=== PATIENT | male | born 1960 | race Caucasian/White ===

== ENCOUNTER → 2019-08-31 10:04 | Outpatient (CLI) | payer BC, SELFPAY ==
[2019-08-31 13:12] LABS: ALB/GLOB Ratio 1.5 RATIO (0.9-2.4); AST(SGOT) 22 U/L (15-37); Alanine Aminotransfer ALT/SGPT 42 U/L (16-61); Albumin, Serum 4.1 g/dL (3.2-5.0); Alkaline Phosphatase 68 U/L (45-117); Anion Gap 7 (5-15); BUN 16 mg/dL (7-18); BUN/Creat Ratio 15.1 RATIO (10-20); Calcium,Total 9.3 mg/dL (8.5-10.1); Chloride 103 mmol/L (98-107); Creatinine, Serum 1.06 mg/dL (0.70-1.30); EST Glomerular Filtration Rate 76 mL/min (>60); Est Glom Filt Rate - Afr Amer 92 mL/min (>60); Globulin 2.8 g/dL (2.2-4.2); Glucose 98 mg/dL (74-106); PSA,Total - Annual Screen 0.66 ng/mL (0.00-4.00); Protein, Total 6.9 g/dL (6.4-8.2); Sodium Level 139 mmol/L (136-145)
== END ==
PROVIDERS: Family Provider Family Medicine; PCP Family Medicine; Referring Provider Family Medicine; Visit Provider Family Medicine
DX: Z12.5 Encounter for screening for malignant neoplasm of prostate (principal); E78.5 Hyperlipidemia, unspecified
CPT/HCPCS: 36415; 80053; 84153; G0103

== ENCOUNTER → 2020-09-09 08:06 | Outpatient (CLI) | payer BC, SELFPAY ==
[2020-09-09 10:01] LABS: ALB/GLOB Ratio 1.2 RATIO (0.9-2.4); AST(SGOT) 21 U/L (15-37); Alanine Aminotransfer ALT/SGPT 47 U/L (16-61); Albumin, Serum 3.9 g/dL (3.2-5.0); Alkaline Phosphatase 66 U/L (45-117); Anion Gap 8 (5-15); BUN 12 mg/dL (7-18); BUN/Creat Ratio 11.2 RATIO (10-20); Chloride 100 mmol/L (98-107); Cholesterol 168 mg/dL (200); Creatinine, Serum 1.07 mg/dL (0.70-1.30); EST Glomerular Filtration Rate 75 mL/min (>60); Est Glom Filt Rate - Afr Amer 90 mL/min (>60); Globulin 3.3 g/dL (2.2-4.2); Glucose 104 mg/dL (74-106); High Density Lipoprotein 72 mg/dL; PSA,Total - Annual Screen 0.77 ng/mL (0.00-4.00); Potassium 3.9 mmol/L (3.5-5.1); Protein, Total 7.2 g/dL (6.4-8.2); Sodium Level 138 mmol/L (136-145); Triglycerides 49 mg/dL; Very Low Density Lipoprotein 10 mg/dL (5-40)
== END ==
PROVIDERS: PCP Family Medicine; Visit Provider Family Medicine
DX: I10 Essential (primary) hypertension (principal); Z12.5 Encounter for screening for malignant neoplasm of prostate
CPT/HCPCS: 36415; 80053; 80061; 84153; G0103

== ENCOUNTER → 2021-09-23 11:45 | Outpatient (CLI) | payer BC, SELFPAY ==
[2021-09-23 16:04] LABS: ALB/GLOB Ratio 1.1 RATIO (0.9-2.4); AST(SGOT) 21 U/L (15-37); Alanine Aminotransfer ALT/SGPT 43 U/L (16-61); Albumin, Serum 3.5 g/dL (3.2-5.0); Alkaline Phosphatase 75 U/L (45-117); Anion Gap 7 (5-15); BUN 16 mg/dL (7-18); Chloride 106 mmol/L (98-107); Cholesterol 224 mg/dL (200); Creatinine, Serum 1.07 mg/dL (0.70-1.30); EST Glomerular Filtration Rate 74 mL/min (>60); Est Glom Filt Rate - Afr Amer 90 mL/min (>60); Globulin 3.3 g/dL (2.2-4.2); Glucose 105 mg/dL (74-106); High Density Lipoprotein 53 mg/dL; Protein, Total 6.8 g/dL (6.4-8.2); Sodium Level 140 mmol/L (136-145); Triglycerides 144 mg/dL; Very Low Density Lipoprotein 29 mg/dL (5-40)
== END ==
PROVIDERS: PCP Family Medicine; Referring Provider Family Medicine; Visit Provider Family Medicine
DX: Z12.5 Encounter for screening for malignant neoplasm of prostate (principal); I10 Essential (primary) hypertension
CPT/HCPCS: 36415; 80053; 80061; 84153; G0103

== ENCOUNTER 2022-01-26 06:03 | Day surgery (SDC) | payer BC, SELFPAY ==
[2022-01-26 06:31] VITALS: BP 149/82; PULSE 86; RESP 16; TEMP 36.6; O2SAT 99; BMI 33.3
[2022-01-26] MEDS: Lactated Ringers 1,000 ML 15 ML IV (06:52)
--- NOTE | 2022-01-26 07:15 | HP.PCM_ITS ---
HPI - General HPI Narrative LLUVIA RICHARDSON, is a 61 M who presents for screening colonoscopy. Patient last colonoscopy 3 to 4 years ago negative per patient. Patient's father was diagnosed with colon cancer in his 70s. Patient also states he did Cologuard which was negative a few years ago. Patient states he has bowel movements daily denies any blood. Patient denies any chronic abdominal pain/nausea/vomiting. Patient states for the last 2 months he has had reflux daily. He has been taking Tums for this. [facility] Medical History (Updated 01/26/22 @ 07:[address] Marilyn Cortes MD) Alcohol use Arthritis Heartburn History of echocardiogram History of edema History of stress test Hypertension Non-smoker Shortness of breath on exertion Wears glasses Home Medications atorvastatin 20 mg PO QHS 12/26/21 [History Last Taken Unknown] doxycycline monohydrate 50 mg PO DAILY 12/26/21 [History Last Taken Unknown] electrolytes, oral 1 packet PO DAILY 12/26/21 [History Last Taken Unknown] indomethacin 50 mg PO PRN PRN 12/26/21 [History Last Taken Unknown] lisinopril-hydrochlorothiazide 1 tab PO DAILY 12/26/21 [History Last Taken 01/26/22] Allergy/AdvReac Type Severity Reaction Status Date / Time No Known Allergies Allergy Verified 01/26/22 06:30 Surgical History (Updated 12/26/21 @ 08:48 by Radha Hernandez) History of laparoscopic cholecystectomy History of meniscectomy of right knee Hx of colonoscopy Hx of total knee arthroplasty Social History (System 03/08/20 @ 12:08 by Phoenix Farr) Smoking Status: Never smoker Past Medical/Surgical History Planned Operation Planned Operative Procedure/s: CSCOPE/OA Previous Hospitalizations/Surgeries HX Hospitalizations: No Any Problems With Anesthesia: No You/Your Family Experience Fever (Hyperthermia) With Anes: No Cholinesterase deficiency: No Cardiovascular Hx Hypertension: Yes (CONTROLLED WITH MED) Respiratory Hx Sleep Apnea: No Hx Respiratory Tract Infection/Cold (presently): No Do You Snore Loudly (louder than talking or can be heard): No Do You Often Feel Tired/ Fatigued/ Sleepy Dring Daytime?: No Has Anyone Observed You Stop Breathing During Sleep?: No Result (for STOP score): Negative Smoking Status: Never smoker Neurological Does patient have nerve stimulator: No Reproduction : No Miscellaneous Recent Exposure to Contagious Disease: No Allergies No Known Allergies Allergy (Verified 01/26/22 06:30) Discharge Is Pt Admitted From a Detention, or a [facility]: No After D/C, Where Do you Plan to Go: Return Home Vital Signs Vital Signs Vital Signs: 01/26/22 06:31 01/26/22 06:34 Temperature 98 F Temperature Source Temporal Pulse Rate 86 Respiratory Rate 16 Respiratory Pattern Normal Blood Pressure 149/82 H Blood Pressure Mean 104 Blood Pressure Source Monitor Blood Pressure Position Semi-Fowlers Blood Pressure Location Right Arm Pulse Ox 99 Oxygen Delivery Method Room Air Weight Weight: 259 lb 4.218 oz Body Mass Index (BMI) 33.3 Physical Exam Const alert, oriented x3 and no apparent distress HEENT normocephalic and head/scalp atraumatic Resp normal respiratory effort Cardio regular rate GI soft to palpation and non-tender; Negative for non-distended Palpation: Negative for guarding Extremity no clubbing, cyanosis or edema Neuro CN's II-XII intact bilaterally Psych mental status grossly normal Assessment & Plan Assessment/Plan (1) Encounter for screening for malignant neoplasm of colon: (2) GERD (gastroesophageal reflux disease): PLAN: Discussed with patient would recommend taking [id number] omeprazole 40 mg p.o. daily for about 2 weeks to see if this helps or if his reflux goes away. Also recommend patient taking some Pepcid initially as it can take couple days for the omeprazole to work. Discussed with patient if he does not have resolution of symptoms in 6 to 8 weeks on the omeprazole. Would recommend an EGD at that time. Procedure Criteria Type of Procedure Procedure Type: Elective Elective Risks - COVID COVID Risk Discussion: The surgeon/proceduralist and patient have discussed in detail the risk of exposure to and/or potential harm posed by the COVID-19 virus with having a surgery/procedure at this time versus the risk of delaying the surgery/procedure. It is not possible to know either the risk of delaying the surgery or procedure or chance of getting an infection with perfect accuracy, but a joint decision was made between the patient and the surgeon/proceduralist to proceed at this time with the scheduled surgery/procedure as indicated on the consent form. Surgery Risks - Colonoscopy Risks Include but are not Limited To: Risks include but are not limited to: Bleeding, perforation requiring further surgery, inability to complete colonoscopy requiring barium enema.
[2022-01-26 07:54] VITALS: BP 117/78; BP 149/82; PULSE 72; RESP 16; TEMP 35.9; O2SAT 98
[2022-01-26 08:00] VITALS: BP 119/79; BP 149/82; PULSE 70; RESP 16; O2SAT 99
--- NOTE | 2022-01-26 08:01 | OP.COLON_ITS ---
Patient Name: Rajinder Friend Procedure Date: 01/26/2022 6:58 AM Date of : 1960 Age: 61 Procedure: Colonoscopy Indications: Screening for colorectal malignant neoplasm Providers: Marilyn Cortes MD Medicines: Monitored Anesthesia Care Patient Profile: This is a 61 year old male. Last Colonoscopy: more than 3 years ago. Complications: No immediate complications. Procedure: Pre-Anesthesia Assessment: - Prior to the procedure, a History and Physical was performed, and patient medications and allergies were reviewed. The patient's tolerance of previous anesthesia was also reviewed. The risks and benefits of the procedure and the sedation options and risks were discussed with the patient. All questions were answered, and informed consent was obtained. Prior Anticoagulants: The patient has taken no previous anticoagulant or antiplatelet agents. ASA Grade Assessment: Per anesthesia. After reviewing the risks and benefits, the patient was deemed in satisfactory condition to undergo the procedure. After I obtained informed consent, the scope was passed under direct vision. Throughout the procedure, the patient's blood pressure, pulse, and oxygen saturations were monitored continuously. The Colonoscope was introduced through the anus and advanced to the cecum, identified by the appendiceal orifice, ileocecal valve and palpation. The colonoscopy was performed without difficulty. The patient tolerated the procedure well. The quality of the bowel preparation was good. Scope In: 7:32:42 AM Scope Withdrawal Time 0 hours 14 minutes 35 seconds Scope Out: 7:50:39 AM Total Procedure Duration Time 0 hours 17 minutes 57 seconds Findings: Hemorrhoids were found on perianal exam. Non-bleeding external and internal hemorrhoids were found. The hemorrhoids were Grade I (internal hemorrhoids that do not prolapse). Multiple small-mouthed diverticula were found in the sigmoid colon. The exam was otherwise without abnormality. Impression: - Hemorrhoids found on perianal exam. - Non-bleeding external and internal hemorrhoids. - Diverticulosis in the sigmoid colon. - The examination was otherwise normal. - No specimens collected. Recommendation: - Discharge patient to home. - High fiber diet. - Continue present medications. - Repeat colonoscopy in 10 years for screening purposes. Procedure Code(s): --- Professional --- G0121, PT, Colorectal cancer screening; colonoscopy on individual not meeting criteria for high risk Diagnosis Code(s): --- Professional --- Z12.11, Encounter for screening for malignant neoplasm of colon K64.0, First degree hemorrhoids K57.30, Diverticulosis of large intestine without perforation or abscess without bleeding CPT copyright 2017 [employer]. All rights reserved. The codes documented in this report are preliminary and upon certified respiratory therapist review may be revised to meet current compliance requirements. MD Marilyn Luong MD 01/26/2022 8:00:36 AM This report has been signed electronically. Number of Addenda: 0 Note Initiated On: 01/26/2022 6:58 AM
--- NOTE | 2022-01-26 08:02 | OP.CCLET_ITS ---
01/26/2022 Joseph Jimenez [address] [place] [address] Re : Colonoscopy procedure for Rajinder Friend Dear Dr. Jimenez This procedure was performed on Wednesday, January 26, 2022. My impressions and recommendations are as follows: Impressions : - Hemorrhoids found on perianal exam. - Non-bleeding external and internal hemorrhoids. - Diverticulosis in the sigmoid colon. - The examination was otherwise normal. - No specimens collected. Recommendations : - Discharge patient to home. - High fiber diet. - Continue present medications. - Repeat colonoscopy in 10 years for screening purposes. My findings are described in the full procedure note, which is enclosed. If I can be of further assistance, please feel free to contact me at Doctor phone number(s): , Work: . Sincerely, MD Marilyn Luong MD 01/26/2022 8:00:36 AM This report has been signed electronically.
[2022-01-26 08:05] VITALS: BP 120/77; BP 149/82; PULSE 67; RESP 16; O2SAT 99
[2022-01-26 08:08] VITALS: BP 122/76; BP 149/82; PULSE 68; RESP 16; TEMP 36.6; O2SAT 98
[2022-01-26 08:21] VITALS: BP 149/82
== END 2022-01-26 23:59 | disposition home or self-care (01) ==
LOC: EN 06:05 → AC 06:07
PROVIDERS: PCP Family Medicine; Referring Provider Family Medicine; Visit Provider Surgery
PROC: 0DJD8ZZ Inspection of Lower Intestinal Tract, Via Natural or Artificial Opening Endoscopic (ICD-10-PCS; CPT 45378; principal; 2022-01-26 07:25)
DX: Z12.11 Encounter for screening for malignant neoplasm of colon (principal); K64.0 First degree hemorrhoids; K64.4 Residual hemorrhoidal skin tags; K57.30 Diverticulosis of large intestine without perforation or abscess without bleeding; K21.9 Gastro-esophageal reflux disease without esophagitis; I10 Essential (primary) hypertension; M19.90 Unspecified osteoarthritis, unspecified site; Z79.899 Other long term (current) drug therapy; Z20.822 Contact with and (suspected) exposure to COVID-19; Z80.0 Family history of malignant neoplasm of digestive organs
CPT/HCPCS: 45378; 87426; J7120

== ENCOUNTER → 2022-09-16 | Outpatient (CLI) | payer BC, SELFPAY ==
[2022-09-16 15:16] LABS: ALB/GLOB Ratio 1.2 RATIO (0.9-2.4); AST(SGOT) 26 U/L (15-37); Alanine Aminotransfer ALT/SGPT 47 U/L (16-61); Alkaline Phosphatase 68 U/L (45-117); Anion Gap 6 (5-15); BUN 18 mg/dL (7-18); BUN/Creat Ratio 17.5 RATIO (10-20); Calcium,Total 9.4 mg/dL (8.5-10.1); Chloride 103 mmol/L (98-107); Cholesterol 164 mg/dL (200); Creatinine, Serum 1.03 mg/dL (0.70-1.30); EST Glomerular Filtration Rate 78 mL/min (>60); Est Glom Filt Rate - Afr Amer 94 mL/min (>60); Globulin 3.2 g/dL (2.2-4.2); Glucose 111 mg/dL (74-106); High Density Lipoprotein 58 mg/dL; PSA,Total - Annual Screen 0.74 ng/mL (0.00-4.00); Potassium 3.5 mmol/L (3.5-5.1); Protein, Total 7.2 g/dL (6.4-8.2); Sodium Level 137 mmol/L (136-145); Triglycerides 107 mg/dL; Very Low Density Lipoprotein 21 mg/dL (5-40)
== END | disposition home or self-care (01) ==
LOC: MFPLAB 12:23
PROVIDERS: PCP Family Medicine; Referring Provider Family Medicine; Visit Provider Family Medicine
DX: Z12.5 Encounter for screening for malignant neoplasm of prostate (principal); I10 Essential (primary) hypertension; E78.5 Hyperlipidemia, unspecified
CPT/HCPCS: 36415; 80053; 80061; 84153; G0103

== ENCOUNTER → 2022-10-09 | Outpatient (CLI) | payer BC, SELFPAY ==
--- NOTE | 2022-10-09 07:35 | CT_ITS ---
STUDY: CTA CHEST REASON FOR EXAM: Male, 62 years old. THORACIC ASCENDING AORTIC ANEURYSM RADIATION DOSAGE (If Supplied By Facility): CTDIvol = ( 15.16 ) mGy, DLP = ( 955.25 ) mGycm TECHNIQUE: The examination was performed with the intravenous administration of IV 100mL Isovue-370. Post-processing of the angiographic images was performed, with multiplanar reformation and 3D reconstruction. Individualized dose optimization techniques were used for this CT. COMPARISON: None. FINDINGS: Normal enhancement of the main pulmonary artery and right and left pulmonary arteries. Normal enhancement of the bilateral peripheral pulmonary arteries. There is no demonstrated pulmonary embolism. Normal thoracic aorta and visualized great vessels. There is no demonstrated aortic dissection. Normal heart and pericardium. There are calcifications of the coronary arteries. Normal mediastinum. Normal hilar regions. Normal visualized trachea and bronchi. The lungs are well expanded. Normal pulmonary parenchyma. Normal pleura. Normal chest wall structures. Normal osseous structures. Normal visualized upper abdomen. CT/CTA Chest W/WO Contrast IMPRESSION: Normal CTA chest examination, without a demonstrated pulmonary embolism or arterial dissection. Electronically Signed: Jeovanny Strong MD at 9:50 EST ,
== END | disposition home or self-care (01) ==
LOC: CT 07:33
PROVIDERS: PCP Family Medicine; Visit Provider Family Medicine
DX: I71.21 Aneurysm of the ascending aorta, without rupture (principal)
CPT/HCPCS: 71275; Q9967

== ENCOUNTER → 2022-10-26 | Outpatient (CLI) | payer BC, SELFPAY ==
--- NOTE | 2022-10-26 15:49 | STRESSREP ---
Stress Test Report Exercise myocardial perfusion stress test. [62-year-old man with a history of dyspnea] Stress protocol: Resting EKG demonstrates [normal sinus rhythm with a rate of 70] bpm resting blood pressure is 132/78 mmHg. The patient exercised according to the regular Jaswant protocol for a total duration of 6 minutes attaining a maximum heart rate of 151 bpm which was 96% of max impacted heart rate the maximum workload was 7 metabolic equivalents. At rest there were no ST or T wave changes noted suggest ischemia and at peak exercise upsloping ST changes only were noted we did not meet the criteria for ischemia. No clinical angina was noted the test was terminated due to the target heart rate being achieved. The peak blood pressure was 172/80 mmHg. Rate-pressure product was 24,200. Myocardial perfusion protocol. 14.8 mCi of technetium 99m sestamibi was injected at rest. The patient exercised according to regular Jaswant protocol for total duration of 6 minutes and at peak exercise 44.8 mCi of technetium 99m sestamibi was injected stress images were obtained stress and rest images were reconstructed in comparing the short axis vertical long and horizontal long axis. Gated images were also obtained. Perfusion SPECT analysis: Review of the stress images demonstrate normal uptake of tracer noted in all areas of the myocardium. The resting images similarly demonstrate normal uptake of tracer noted in all areas of the myocardium. No areas of reversibility are noted to suggest ischemia no previous infarct was noted. Gated SPECT analysis: The gated ejection fraction is 64. Conclusion: Normal exercise myocardial perfusion stress test at a moderate workload. Preserved ejection fraction.
== END | disposition home or self-care (01) ==
LOC: CVS 06:44
PROVIDERS: PCP Family Medicine; Referring Provider Family Medicine; Visit Provider Family Medicine
DX: R06.00 Dyspnea, unspecified (principal); I71.21 Aneurysm of the ascending aorta, without rupture
CPT/HCPCS: 78452; 93017; A9500; A4216

== ENCOUNTER → 2023-09-21 | Outpatient (CLI) | payer BC, SELFPAY ==
[2023-09-21 12:28] LABS: ALB/GLOB Ratio 1.3 RATIO (0.9-2.4); AST(SGOT) 20 U/L (15-37); Alanine Aminotransfer ALT/SGPT 46 U/L (16-61); Alkaline Phosphatase 68 U/L (45-117); Anion Gap 5 (5-15); BUN 13 mg/dL (7-18); BUN/Creat Ratio 13.7 RATIO (10-20); Calcium,Total 9.2 mg/dL (8.5-10.1); Chloride 103 mmol/L (98-107); Creatinine, Serum 0.95 mg/dL (0.70-1.30); EST Glomerular Filtration Rate 85 mL/min (>60); Est Glom Filt Rate - Afr Amer 103 mL/min (>60); Globulin 3.1 g/dL (2.2-4.2); Glucose 112 mg/dL (74-106); PSA,Total - Annual Screen 0.86 ng/mL (0.00-4.00); Potassium 3.6 mmol/L (3.5-5.1); Protein, Total 7.1 g/dL (6.4-8.2); Sodium Level 135 mmol/L (136-145); Uric Acid 7.8 mg/dL (3.5-7.2)
== END | disposition home or self-care (01) ==
LOC: MFPLAB 10:17
PROVIDERS: PCP Family Medicine; Visit Provider Family Medicine
DX: Z00.00 Encounter for general adult medical examination without abnormal findings (principal); Z12.5 Encounter for screening for malignant neoplasm of prostate; M10.9 Gout, unspecified; E78.5 Hyperlipidemia, unspecified
CPT/HCPCS: 36415; 80053; 84153; 84550; G0103

== ENCOUNTER → 2023-11-11 | Outpatient (CLI) | payer BC, SELFPAY ==
[2023-11-11 11:05] LABS: Uric Acid 8.6 mg/dL (3.5-7.2)
== END | disposition home or self-care (01) ==
PROVIDERS: PCP Family Medicine; Referring Provider Family Medicine; Visit Provider Family Medicine
DX: M10.9 Gout, unspecified (principal)
CPT/HCPCS: 36415; 84550

== ENCOUNTER → 2024-01-14 | Outpatient (CLI) | payer BC, SELFPAY ==
--- OUTSIDE RECORDS SUMMARY | 2024-01-14 12:56 | XMS RPT_ITS | CCD ---
Author Name Unknown Address [address] [place] [address] Organization [facility] Care Team Providers Care Events Intern Name Role Phone Marco Hay Unavailable Nimisha Abdullahi Unavailable Amanda HILL, Anayadira Hankins Primary Care Provide r ANA PAYNE Primary Care Unavail able RODRICK GONZALEZ Attending Unavailable ANA PAYNE Primary Care Unavail able RODRICK GONZALEZ Referring Unavailable Medications Current Medications Medication Drug Class(es) Dates Sig (Normalized) Sig (Original) predniSONE 20 mg oral tablet (3 sources) Start: 05-08-2023 take 1 tablet by mouth every eight hours predniSONE 20 MG 1 tablet Orally Three times a day for 5 days Apr, Active Completed/Discontinued Medications Medication Drug Class(es) Dates Sig (Normalized) Sig (Original) atorvastatin 20 mg oral tablet (4 sources) HMG-CoA Reductase Inhibitor take 1 tablet by mouth once daily atorvastatin (LIPITOR) 20 mg tablet Take 20 mg by mouth once daily. 0 Active Problems Active Problems Problem Classification Problem Date Documented Date Episodic/Chronic Allergic reactions (1 source) Allergic contact dermatitis, unspecified cause Episodic Disorders of lipid metabolism (2 sources) Hyperlipidemia; Translations: [Hyperlipidemia, unspecified] Chronic Essential hypertension (3 sources) Benign essential hypertension; Translations: [Essential (primary) hypertension] Chronic Inflammation; infection of eye (except that caused by tuberculosis or sexually transmitteddisease) (1 source) Unspecified acute conjunctivitis, left eye Episodic Joint disorders and dislocations; trauma-related (2 sources) Loose body in right knee joint; Translations: [Loose body in knee, right knee] Onset: 11-01-2018 11-01-2018 Chronic Osteoarthritis (1 source) Osteoarthritis of left knee joint; Translations: [Unilateral primary osteoarthritis, left knee] 10-21-2023 Chronic Other non-traumatic joint disorders (1 source) Pain in left knee; Translations: [Pain in joint, lower leg] 10-21-2023 Episodic Other nutritional; endocrine; and metabolic disorders (2 sources) Body mass index 30+ - obesity; Translations: [Obesity, unspecified] Chronic Other skin disorders (1 source) Rash and other nonspecific skin eruption Episodic Residual codes; unclassified (2 sources) Family history of malignant neoplasm of gastrointestinal tract; Translations: [Family history of malignant neoplasm of digestive organs] Episodic Residual codes; unclassified (1 source) Pain; Translations: [Pain, unspecified] 10-21-2023 Episodic Residual codes; unclassified (1 source) Pain, unspecified; Translations: [Pain] Onset: 10-21-2023 Episodic Viral infection (2 sources) Herpes labialis; Translations: [Herpes labialis] Episodic Past or Other Problems Problem Classification Problem Date Documented Date Episodic/Chronic Joint disorders and dislocations; trauma-related (4 sources) Acute tear of meniscus of right knee; Translations: [Unspecified tear of unspecified meniscus, current injury, right knee, initial encounter] Onset: 05-27-2018 11-09-2018 Episodic Other acquired deformities (2 sources) Arthropathy of knee joint; Translations: [Other specified acquired deformities of musculoskeletal system] Onset: 10-28-2018 10-28-2018 Episodic Other connective tissue disease (2 sources) Rupture of popliteal space synovial cyst; Translations: [Rupture of popliteal cyst] Onset: 10-28-2018 10-28-2018 Episodic Residual codes; unclassified (2 sources) History of arthroscopy of knee joint; Translations: [Other specified postprocedural states] Onset: 06-13-2018 06-13-2018 Episodic Results Test Name Value Interpretation Reference Range Facil ity Vital Signs Date Time Vital Sign Value Performing Clinician Facility 10-21-2023 10:01-0500 Body height 188 cm Rodrick Gonazlez MD Work Phone: [facility] 10-21-2023 10:01-0500 Body weight 115.67 kg Rodrick Gonzalez MD Work Phone: [facility] 05-08-2023 09:10-0400 Body height 182.88 cm Nimisha Abdullahi Other [employer] Other 05-08-2023 09:10-0400 Body mass index (BMI) [Ratio] 35.26 kg/m2 Nimisha Abdullahi Other [employer] Other 05-08-2023 09:10-0400 Body temperature 97.9 [degF] Nimisha Abdullahi Other [employer] Other 05-08-2023 09:10-0400 Body weight 117.94 kg Nimisha Abdullahi Other [employer] Other 05-08-2023 09:10-0400 Diastolic blood pressure 68 mm[Hg] Nimisha Abdullahi Other [employer] Other 05-08-2023 09:10-0400 SaO2% (BldA) [Mass fraction] 97 % Nimisha Abdullahi Other [employer] Other 05-08-2023 09:10-0400 Systolic blood pressure 110 mm[Hg] Nimisha Abdullahi Other [employer] Other 08-19-2022 14:10-0400 Body height 182.88 cm Marco Hay Other [employer] Other 08-19-2022 14:10-0400 Body mass index (BMI) [Ratio] 7.46 kg/m2 Marco Hay Other [employer] Other 08-19-2022 14:10-0400 Body temperature 97.4 [degF] Marco Hay Other [employer] Other 08-19-2022 14:10-0400 Body weight 24.95 kg Marco Hay Other [employer] Other 08-19-2022 14:10-0400 Respiratory rate 18 /min Marco Hay Other [employer] Other 08-19-2022 14:10-0400 SaO2% (BldA) [Mass fraction] 97 % Marco Hay Other [employer] Other Encounters Encounter Date Encounter Type Care Provider Facility Start: 10-21-2023 End: 10-21-2023 ambulatory ANA PAYNE Facility:[facility] Start: 10-21-2023 End: 10-21-2023 Patient encounter procedure Rodrick Gonzalez MD Work Phone: Orthopaedics Procedures Date Procedure Procedure Detail Performing Clinician Start: 10-21-2023 Radiologic exam knee complete 4/more views Rodrick Gonzalez MD Work Phone: Screening for malign ant neoplasm of colon Marco Hay Other Plan of Treatment Date Care Activity Detail Author Start: 07-23-2023 Influenza vaccination Influenza Vacc ine (#1) [facility] Start: 11-22-2022 Depression Assessment Depression Ass essment [facility] Start: 2019 RSV Vaccine (1 - 1-d ose 60+ series) RSV Vaccine (1 - 1-dose 60+ series) [facility] Start: 2014 Prostate Cancer Scre ening Discussion Prostate Cancer Screening Discussion [facility] Start: 2004 Cologuard (FIT-DNA) Cologuard (FIT-D NA) [facility] Start: 2004 Colonoscopy Colonoscopy [facility] Start: 2004 Colorectal Cancer Screening Colorectal Cancer Screening [facility] Start: [address] [facility] Start: 2004 Diabetes Screening Diabetes Screenin g [facility] Start: 2004 Fecal Occult Blood Fecal Occult Bloo d [facility] Start: 2004 [facility] Start: 1994 Lipid 1996 panel - S william or Plasma Lipid Screening [facility] Start: 1978 Urine microalbumin profile DTa P,Tdap,Td Vaccine (1 - Tdap) [facility] Start: 1977 Hepatitis C Screening Hepatitis C Sc alberto [facility] Start: 1977 HIV Screening HIV Screening [facility] Start: 02-07-1960 Covid-19 Vaccine (#1) Covid-19 Vacci ne (#1) [facility] Immunizations Immunization Date Immunization Notes Care Provider Mason roach NEGATED: Highlighted row has not occurred!10-24-2014 influenza, injectable, quadrivalent, preservative free Patient Objection Marco Hay Other [employer] Other Payers Date Payer Category Payer [facility] Blue [facility] [id number] 2017 Unknown [employer]UE C[employer] PPO OOS [id number] 2017-Present [phone] [address] [place] [address] PPO [id number] Social History Date Type Detail Facility Unknown if ever smoked [employer] Other Start: 11-07-2018 End: 10-21-2023 Sex Assigned At [facility] Start: 05-31-2018 Tobacco smoking stat us IAIS Never smoked tobacco [facility] Start: 05-31-2018 Tobacco use and exposure Smokeless tobacco non-user [facility] Start: 11-07-2018 Alcohol intake Current drinke r of alcohol (finding) [facility] Start: 11-07-2018 End: 10-21-2023 History of Social function [facility] Adult Depression Screening Assessment 0 [facility] Start: 11-07-2018 Alcohol Comment 6-8 beers on t he weekend- No hx of DTs or rehab [facility] Start: 1960 Sex Assigned At Not on file C [facility] Clinical Notes 08-19-2022 to 10-21-2023 Rodrick Gonzalez MD - 10/21/2023 10:02 AM Viridiana Yanes, RT(R) - 10/21/2023 9:45 AM EST Note Date & Type Note Facility 10-21-2023 Note HNO ID: [id number] Author: Rodrick Gonzalez MD Service: ? Author Type: Physician Type: Progress Notes Filed: 10/21/2023 1:57 PM Note Text: CONSULT ORTHOPAEDIC: KNEE PRIMARY CARE PHYSICIAN: Ana Payne MD REFERRING PROVIDER: No referring provider defined for this encounter. ASSESSMENT AND PLAN Impression: Left Knee Severe Degenerative Osteoarthritis, Primary Prior R TKA done by Dr. Valentine in [place] 01/21/2019 Scheduled for left robotic TKA @ 02/22/24 Patient has been pre-oped today and given the pre-op wipes and information Diagnoses: (M17.12) Primary osteoarthritis of left knee (primary encounter diagnosis) Based upon the evaluation today and after discussions with Rajinder Edwards, Rajinder Sean Brinky has significant, worsening pain at the knee. This pain is increased with activity and weight bearing, and interferes with activities of daily living. These symptoms have continued despite a number of non-surgical measures, including a trial of oral pain medication and attempted physical therapy/ structured exercise program and/or use of an assistive device/ bracing (for at least 12 weeks unless the patient was unable to tolerate these measures as discussed above). At this point, the patient will not benefit from further PT due to the severity of their condition. The patient's physical examination is consistent with limitations in range of motion, pain with passive range of motion, crepitus, and effusion/ synovitis. These examination findings are corroborated by imaging findings of joint space narrowing, periarticular osteophyte formation, and subchondral sclerosis. The patient has been treated by the practice and all reasonable treatments have failed to control the disease, which causes significant pain and limits activities of daily living. The patient has failed conservative treatment and joint replacement surgery was discussed and agreed upon by both provider and patient. We will proceed with surgical management to improve function and relieve pain refractory to non-surgical measures. Left Primary Total Knee Arthroplasty as evidenced by six months of unsuccessful non-operative treatment as outlined in the HPI below. Surgery Details Date and Location: At [facility] on 02/22/24. Implants: Esbon Robotic: Yes Predicted LOS: 1 day (Outpatient candidate) Informed consent obtained in the office today. The risks and benefits of surgery were discussed at length including but not limited to the risks of infection, bleeding, nerve or blood vessel injury, deep venous thrombosis, pulmonary embolism, arthrofibrosis, reflex sympathetic dystrophy, , paralysis, knee or patellar dislocation, extensor mechanism injury, bone fracture, component loosening or failure requiring re-operation or amputation. Informed consent was obtained and the patient was scheduled for surgery. We also discussed fixation strategies including cement and cementless fixation and advantages and disadvantages of each. We discussed the details of the surgery as well as rehabilitation. All questions were answered, and the patient wishes to proceed with surgery.. The patient has been ordered: No orders found for this visit on 10/21/23. No orders placed today. CONSULTS: IMPACT/PACE Consult for preoperative clearance. Total Joint Arthroplasty: Risk Calculator Rajinder Edwards has a 2.17% chance of NOT returning home at discharge for a Primary total Knee replacement. Rajinder's estimated Length of Stay is 1 day (Outpatient candidate). Rajinder's 30 day chance of readmission is 1.56%. Readmission Probability 1.56 % (within 30 days following surgery) Estimated LOS 1 day Discharge Disposition Probability D/C to Home 97.83 % D/C to SNF 2.17 % These calculations are based on the following factors: - 63 years of age - sex is male - BMI of 32.74 kg/m2 - NarxCare score of 0 - 0 hospitalizations in the last 12 months - no history of heart disease - no history of diabetes - no history of COPD - no history of anemia - preoperative ambulation: independent community distances - 0 step(s) to enter home - bed location is on the first floor - bath location is on the first floor - caregiver is consistent - home is not more than 150 miles away - PROMIS-10 Mental Health T score 50+ - Marital status: Risk Factors for Total Knee Arthroplasty (TKA) Major Risk Factors Obesity Moderate Risk High: BMI > 40 Moderate: BMI 30-40 Normal: BMI < 30 Diabetes normal High: A1C > 8 Moderate: A1C 7-8 Normal: A1C < 7 Smoking normal High: Current smoker Normal: Non smoker Narcotics Use normal High:NarxCare >=300 Moderate: 100-299 Normal: 0-99 Depression normal High: PHQ-9 >14 Moderate: PHQ-9 5-14 Normal: PHQ-9 < 5 Area Deprivation Index (IRENE) Moderate Risk High: IRENE Score > 75 Moderate: IRENE 50-75 Normal: IRENE < 50 Obesity: weight management recommended (more content not included)... [facility] 10-21-2023 Note HNO ID: [id number] Author: Viridiana Julian RT(R) Service: Radiology Author Type: Technologist Type: Progress Notes Filed: 10/21/2023 9:54 AM Note Text: Radiology Service Progress Note PATIENT NAME: Rajinder Edwards DATE OF SERVICE: October 21, 2023 TIME: 9:50 AM PATIENT IDENTITY VERIFICATION COMPLETED USING TWO (2) IDENTIFIERS: Name and Date of confirmed by patient verbally. FALL SCREENING: Has the patient had 2 falls in the last year or 1 fall with injury or currently using an Ambulatory Assistive Device (Walker, Cane, Wheelchair, Crutches, etc.)? No PATIENT GENDER DATA: Male PATIENT RELEVANT IMPLANT DATA REVIEWED: Not Applicable RADIOLOGY DEPARTMENT: General X-ray: Exam(s) Completed: Pelvis X-Ray: Pelvis General AP Lower Extremity X-Ray(s): Knee, AP / Lat / Tunne / Merchant Left and Wt. Bearing PERIPHERAL IV DATA: Not applicable SIGNED BY: RT Kendall(R) October 21, 2023 9:50 AM [facility] 10-21-2023 History of Present illness Narrative CONSULT ORTHOPAEDIC: KNEE PRIMARY CARE PHYSICIAN: Ana Payne MD REFERRING PROVIDER: No referring provider defined for this encounter. ASSESSMENT & PLAN Impression: Left Knee Severe Degenerative Osteoarthritis, Primary Prior R TKA done by Dr. Valentine in [place] 01/21/2019 Scheduled for left robotic TKA @ 02/22/24 Patient has been pre-oped today and given the pre-op wipes and information Diagnoses: (M17.12) Primary osteoarthritis of left knee (primary encounter diagnosis) Based upon the evaluation today and after discussions with Rajinder Edwards, Rajinder Edwards has significant, worsening pain at the knee. This pain is increased with activity and weight bearing, and interferes with activities of daily living. These symptoms have continued despite a number of non-surgical measures, including a trial of oral pain medication and attempted physical therapy/ structured exercise program and/or use of an assistive device/ bracing (for at least 12 weeks unless the patient was unable to tolerate these measures as discussed above). At this point, the patient will not benefit from further PT due to the severity of their condition. The patient's physical examination is consistent with limitations in range of motion, pain with passive range of motion, crepitus, and effusion/ synovitis. These examination findings are corroborated by imaging findings of joint space narrowing, periarticular osteophyte formation, and subchondral sclerosis. The patient has been treated by the practice and all reasonable treatments have failed to control the disease, which causes significant pain and limits activities of daily living. The patient has failed conservative treatment and joint replacement surgery was discussed and agreed upon by both provider and patient. We will proceed with surgical management to improve function and relieve pain refractory to non-surgical measures. Left Primary Total Knee Arthroplasty as evidenced by six months of unsuccessful non-operative treatment as outlined in the HPI below. Surgery Details Date and Location: At [facility] on 02/22/24. Implants: Renea Robotic: Yes Predicted LOS: 1 day (Outpatient candidate) Informed consent obtained in the office today. The risks and benefits of surgery were discussed at length including but not limited to the risks of infection, bleeding, nerve or blood vessel injury, deep venous thrombosis, pulmonary embolism, arthrofibrosis, reflex sympathetic dystrophy, , paralysis, knee or patellar dislocation, extensor mechanism injury, bone fracture, component loosening or failure requiring re-operation or amputation. Informed consent was obtained and the patient was scheduled for surgery. We also discussed fixation strategies including cement and cementless fixation and advantages and disadvantages of each. We discussed the details of the surgery as well as rehabilitation. All questions were answered, and the patient wishes to proceed with surgery.. The patient has been ordered: No orders found for this visit on 10/21/23. No orders placed today. CONSULTS: IMPACT/PACE Consult for preoperative clearance. Total Joint Arthroplasty: Risk Calculator Rajinder Sean ClayEdwards has a 2.17% chance of NOT returning home at discharge for a Primary total Knee replacement. Rajinder's estimated Length of Stay is 1 day (Outpatient candidate). Rajinder's 30 day chance of readmission is 1.56%. Readmission Probability 1.56 % (within 30 days following surgery) Estimated LOS 1 day Discharge Disposition Probability D/C to Home 97.83 % D/C to SNF 2.17 % These calculations are based on the following factors: - 63 years of age - sex is male - BMI of 32.74 kg/m2 - NarxCare score of 0 - 0 hospitalizations in the last 12 months - no history of heart disease - no history of diabetes - no history of COPD - no history of anemia - preoperative ambulation: independent community distances - 0 step(s) to enter home - bed location is on the first floor - bath location is on the first floor - caregiver is consistent - home is not more than 150 miles away - PROMIS-10 Mental Health T score 50+ - Marital status: Risk Factors for Total Knee Arthroplasty (TKA) Major Risk Factors Obesity Moderate Risk High: BMI > 40 Moderate: BMI 30-40 Normal: BMI < 30 Diabetes normal High: A1C > 8 Moderate: A1C 7-8 Normal: A1C < 7 Smoking normal High: Current smoker Normal: Non smoker Narcotics Use normal High:NarxCare >=300 Moderate: 100-299 Normal: 0-99 Depression normal High: PHQ-9 >14 Moderate: PHQ-9 5-14 Normal: PHQ-9 < 5 Area Deprivation Index (IRENE) Moderate Risk High: IRENE Score > 75 Moderate: IRENE 50-75 Normal: IRENE < 50 Obesity: weight management recommended BMI Readings from Last 3 Encounters: 10/21/23 : 32.74 kg/m 11/07/18 : 32.10 kg/m 05/31/18 : 32.48 kg/m Area Deprivation Index (IRENE) IRENE Score 10/21/2023 National Score 58 Patient Health Questionnaire (PHQ-9) PHQ-9 10/21/2023 PHQ-2 Score 0 (0-4) minimal depression, (5-9) mild depression, (10-14) moderate depression, (15-19) moderately severe depression, (20-27) severe depression Bone Density Risk Screen Rajinder Edwards is low risk for bone loss based on his age and having no previous diagnoses of osteopenia, osteoporosis, Paget's disease of bone, or cancer of bone. Other risk factors are listed below to determine if they pose a significant risk for bone loss, and if so, recommend ordering a bone densitometry and, upon receiving a result, as needed, order a consult to a bone health specialist (Rheumatology, Endocrinology, or Women's Health) for bone assessment. Risk Factors: Dx of Chronic Kidney Disease (CKD) Additional Risk Factors Past Orthopaedic Surgery: Rajinder had knee surgery on 11/09/2018 with Michael Potts. Malnutrition: No Malnutrition Screening Tool (MST) score on file- please complete the MST screening tool (click here to open) and refresh the note. ACTIVE PROBLEM LIST Acute Meniscal Tear of Right Knee Tear of Medial Meniscus of Right Knee S/P right knee arthroscopy (06/02/18) Osteochondral Defect of Femoral Condyle Ruptured Bakers Cyst Loose, Body, Joint, Knee, Right SUBJECTIVE CHIEF COMPLAINT: Knee Pain HPI: Rajinder Edwards is a 63 year old patient with the presenting complaint of New of the Left Knee. Rajinder Edwards has had progressive problems with the knee(s) a few times a day over the past 6 month(s) interfering with activities which include walking and rising from a sitting position. The problem began limiting activities 1-6 months ago. Rajinder reports a current pain level of 2 (Knee-Left). He describes the pain as Sharp. The pain is Intermittent, and has lasted for 6 Months. Interventions tried include Reposition, Relaxation. FALL RISK: Rajinder is not currently at risk for falls. PROMIS Physical Function Score PROMIS CAT Physical Function 10/21/2023 T-Score 45 (within normal limits) Percentile 31 FUNCTIONAL STATUS: Totally dependent PREVIOUS TREATMENTS: Last Knee Surgery: 11/09/2018 with Michael Potts Current Anti-Inflammatory medications: diclofenac sodium Past anti-inflammatory medications (not necessarily for this reason for visit): betamethasone acetate,sod phos, diclofenac sodium, meloxicam Medical Treatments: Tylenol REVIEW OF SYSTEMS: PAIN ASSESSMENT: See HPI. MUSCULOSKELETAL: See HPI. No flowsheet data found. PAST MEDICAL HISTORY Diagnosis Date HLD (hyperlipidemia) HTN (hypertension) PAST SURGICAL HISTORY Procedure Laterality Date CHOLECYSTECTOMY KNEE SCOPE,MENISECTOMY,MED & LAT Left 2012 PAST SURGICAL HISTORY OF 06/02/2018 right knee arthroscopy SCREENING COLONSCOPY NOT HIGH RISK FAMILY HISTORY Problem Relation Age of Onset Breast Cancer Mother other (htn) Father No Known Problems Sister Skin Cancer Brother melanoma Social History Tobacco Use Smoking status: Never Smokeless tobacco: Never Substance Use Topics Alcohol use: Yes Comment: 6-8 beers on the weekend- No hx of DTs or rehab Drug use: No ALLERGIES: Patient has no known allergies. MEDICATIONS: diclofenac sodium (VOLTAREN) 1 % topical gel Apply 2-4 grams to right knee three times daily. PLEASE DISPENSE GENERIC. lisinopril-hydrochlorothiazide (PRINZIDE, ZESTORETIC) 20-25 mg per tablet Take 1 tablet by mouth once daily. atorvastatin (LIPITOR) 20 mg tablet Take 20 mg by mouth once daily. valACYclovir (VALTREX) 1 gram tab Take by mouth as needed. OBJECTIVE PHYSICAL EXAM: Ht 188 cm (6' 2 ) Wt 115.7 kg (255 lb) BMI 32.74 kg/m All other systems deferred. GENERAL: Appears healthy, well-nourished, no deformities. HABITUS: Normal GAIT: Normal, the patient did not have trouble getting onto the exam table. KNEE EXAM: Left: Alignment: Neutral Range of motion is 0 degrees in extension and 130 degrees of flexion. Extension La degrees Pain with ROM: No Effusion: None Tender to the palpation of None Pain with patellar compression: No Stability: Anterior/Posterior stable and Varus/Valgus stable Hip Exam: flexion to 100+ degrees, full extension, internal/external rotation adequate and no pain with log roll Neurovascular Status: Sensation Intact and Moves foot and ankle up & down DATA: Most recent knee imaging was completed on 10/21/2023 (MRI KNEE WO IVCON RIGHT) . Attached is imaging for the order.Rajinder had knee surgery on 11/09/2018 with Michael Potts. Diagnostic tests reviewed for today's visit: Left knee X-Ray: Severe tri-compartmental degeneration SIGNATURE: Rodrick Gonzalez MD PATIENT NAME: Rajinder Edwards DATE: October 21, 2023 TIME: 10:02 AM documented in this encounter [facility] 10-21-2023 History of Present illness Narrative Radiology Service Progress Note PATIENT NAME: Rajinder Edwards DATE OF SERVICE: October 21, 2023 TIME: 9:50 AM PATIENT IDENTITY VERIFICATION COMPLETED USING TWO (2) IDENTIFIERS: Name and Date of confirmed by patient verbally. FALL SCREENING: Has the patient had 2 falls in the last year or 1 fall with injury or currently using an Ambulatory Assistive Device (Walker, Cane, Wheelchair, Crutches, etc.)? No PATIENT GENDER DATA: Male PATIENT RELEVANT IMPLANT DATA REVIEWED: Not Applicable RADIOLOGY DEPARTMENT: General X-ray: Exam(s) Completed: Pelvis X-Ray: Pelvis General AP Lower Extremity X-Ray(s): Knee, AP / Lat / Tunne / Merchant Left and Wt. Bearing PERIPHERAL IV DATA: Not applicable SIGNED BY: RT Kendall(R) October 21, 2023 9:50 AM documented in this encounter [facility] [employer] Other 09-28-2022 Evaluation note* Encounter Date Diagnosis Assessment Notes Treatment Notes Treatment Clinical Notes Jul, Allergic contact dermatitis, unspecified trigger (ICD-10 - L23.9) Symptoms are consistent with contact dermatitis on the left side of the face. I did consider herpes zoster infection, cellulitis, impetigo, periorbital cellulitis, however, given that there is no induration, tenderness to palpation, swelling, abrasions/lacerat ions on the left side of the face, that he is afebrile, not tachycardic, and that there is no vesicular lesions on the face, these other pathologies are unlikely. We will treat the patient with a course of prednisone and TobraDex for his eye. Patient given strict return precautions. He understands and agrees with plan. Jul, Acute conjunctivitis of left eye, unspecified acute conjunctivitis type (ICD-10 - H10.32) [employer] Other Evaluation note* Diagnosis Primary osteoarthritis of left knee- Primary Primary localized osteoarthrosis, lower leg [facility] Diagnosis Pain Generalized pain Left knee pain, unspecified chronicity documented in this encounter [facility] general Narrative - Reported* Type Description Date Medical History HYPERTENSION Medical History HERPES (MOUTH) Surgical History CYST REMOVAL ON SCALP 2012 Surgical History CHOLECYSTECTOMY Surgical History Left Knee surgery 2014 Surgical History Right Knee Surgery (Meniscus) Surgical History Right knee surgery 10/2018 Hospitalization History see above [employer] Other History general Narrative - Reported* Type Description Date Medical History HYPERTENSION Medical History HERPES (MOUTH) Medical History Cholesterol Surgical History CYST REMOVAL ON SCALP 2012 Surgical History CHOLECYSTECTOMY Surgical History Left Knee surgery 2014 Surgical History Right Knee Surgery (Meniscus) Surgical History Right knee surgery 10/2018 Hospitalization History see above [employer] Other Reason for referral (narrative)* Diagnostic Procedure Only (Routine) - Closed Specialty Diagnoses / Procedures Referred By Contac t Referred To Contact XR IMAGING Diagnoses Left knee pain, unspecified chronicity Procedures XR PELVIS 1V AP RADIOLOGIC EXAMINATION PELVIS 1/2 VIEWS Mary Santiago PA-C [address] [place] [address] Xr Imaging [id number] Referral ID Status Reason Start Date Expiration Date V isits Requested Visits Authorized [id number] Closed Auto-Generate d Referral 10/19/2023 11/17/2024 1 1 * Diagnostic Procedure Only (Routine) - Closed Specialty Diagnoses / Procedures Referred By Contac t Referred To Contact XR IMAGING Diagnoses Pain Procedures XR KNEE GENERAL 4V AP BOTH/PA BOTH/LAT/MERC LEFT RADIOLOGIC EXAM KNEE COMPLETE 4/MORE VIEWS Rodrick Gonzalez MD [address] [place] [address] Xr Imaging [id number] Referral ID Status Reason Start Date Expiration Date V isits Requested Visits Authorized [id number] Closed Auto-Generate d Referral 04/28/2023 05/27/2024 1 1 [facility] Summary Purpose Family History No Family History Records FoundNo Family History Records Found Advance Directives No Advanced Directives Records FoundNo Advanced Directives Records Found Additional Source Comments (unrecognized sect ion and content) No Status Records FoundNo Status Records Found INFORMATION SOURCE (unrecogn ized section and content) DATE CREATED AUTHOR AUTHOR'S ORGANIZ ATION 10/23/2023 [facility] REASON FOR VISIT (unrecogniz ed section and content) Reason Comments [facility]MP Specialty Diagnoses / Procedures Referred By Contac t Referred To Contact XR IMAGING Diagnoses Pain Procedures XR KNEE GENERAL 4V AP BOTH/PA BOTH/LAT/MERC LEFT RADIOLOGIC EXAM KNEE COMPLETE 4/MORE VIEWS Rodrick Gonzalez MD [address] [place] [address] [id number] Referral ID Status Reason Start Date Expiration Date V isits Requested Visits Authorized [id number] Closed Auto-Generate d Referral 04/28/2023 05/27/2024 1 1 Source Comments (unrecognize d section and content) In the event this informatio n is protected by the Federal Confidentiality of Alcohol and Drug Abuse Patient Records regulations: The Federal rules restrict any use of the information to criminally investigate or prosecute any alcohol or drug abuse patient.[facility] the event this information is protected by the Federal Confidentiality of Alcohol and Drug Abuse Patient Records regulations: The Federal rules restrict any use of the information to criminally investigate or prosecute any alcohol or drug abuse patient.[facility] Care Teams (unrecognized sec tion and content) Events Intern Relationship Specialty Start Date End Date Ana Payne MD [facility] [place] [address] PCP - General Internal Medicine 05/31/18 FOR RECORDS PERTAINING TO PATIENTS WHO ARE OR HAVE BEEN ENROLLED IN A CHEMICAL DEPENDENCY/SUBSTANCEABUSE PROGRAM, SOME INFORMATION MAY BE OMITTED. This clinical summary was aggregated from multiple sources. Caution should be exercised in using it in the provision of clinical care. This summary normalizes information from multiple sources, and as a consequence, information in this document may materially change the coding, format and clinical context of patient data. In addition, data may be omitted in some cases. CLINICAL DECISIONS SHOULD BE BASED ON THE PRIMARY CLINICAL RECORDS. [facility]. provides no warranty or guarantee of the accuracy or completeness of information in this document.
[2024-01-14 15:36] LABS: Uric Acid 7.9 mg/dL (3.5-7.2)
== END | disposition home or self-care (01) ==
LOC: MFPLAB 12:23
PROVIDERS: PCP Family Medicine; Visit Provider Family Medicine
DX: M10.9 Gout, unspecified (principal)
CPT/HCPCS: 36415; 84550

== ENCOUNTER → 2024-11-08 | Outpatient (CLI) | payer MEDICARE, SELFPAY ==
[2024-11-08 18:31] LABS: Hemoglobin A1c 5.5 % (3.8-5.6)
[2024-11-08 18:33] LABS: ALB/GLOB Ratio 1.2 RATIO (0.9-2.4); AST(SGOT) 33 U/L (15-37); Alanine Aminotransfer ALT/SGPT 58 U/L (16-61); Albumin, Serum 3.8 g/dL (3.2-5.0); Alkaline Phosphatase 72 U/L (45-117); Anion Gap 7 (5-15); BUN 9 mg/dL (7-18); Calcium,Total 9.2 mg/dL (8.5-10.1); Chloride 100 mmol/L (98-107); Cholesterol 145 mg/dL (200); EST Glomerular Filtration Rate 90 mL/min (>60); Est Glom Filt Rate - Afr Amer 109 mL/min (>60); Globulin 3.2 g/dL (2.2-4.2); Glucose 95 mg/dL (74-106); High Density Lipoprotein 81 mg/dL; PSA,Total - Annual Screen 0.67 ng/mL (0.00-4.00); Potassium 3.7 mmol/L (3.5-5.1); Sodium Level 135 mmol/L (136-145); Triglycerides 64 mg/dL; Uric Acid 4.6 mg/dL (3.5-7.2); Very Low Density Lipoprotein 13 mg/dL (5-40)
== END | disposition home or self-care (01) ==
PROVIDERS: PCP Family Medicine; Referring Provider Family Medicine; Visit Provider Family Medicine
DX: Z13.1 Encounter for screening for diabetes mellitus (principal); M10.9 Gout, unspecified; E78.5 Hyperlipidemia, unspecified; Z12.5 Encounter for screening for malignant neoplasm of prostate
CPT/HCPCS: 36415; 80053; 80061; 83036; 84153; 84550; G0103